=== PATIENT | female | born 1995 | race Two or more races ===

== ENCOUNTER 2019-04-23 07:46 | Emergency (ER) ==
[~2019-04-23] VITALS: Ht 152.4 cm; Wt 62.1 kg
[2019-04-23 07:58] VITALS: BP 121/88
[2019-04-23] MEDS ORDERED: IBUPROFEN 600 MG TABLET PO ONE ×2 (08:18→08:30)
[2019-04-23] MEDS ORDERED: HYDROCODONE/APAP 5/325MG 1 EACH TABLET ONE (08:18)
[2019-04-23] MEDS ORDERED: HYDROCODONE/APAP 5/325MG 1 EACH TABLET PO ONE (08:30)
== END 2019-04-23 10:36 | disposition home or self-care (01) ==
LOC: ER 07:46
DX: S09.8XXA Other specified injuries of head, initial encounter (principal); M54.5 Low back pain; V49.59XA Passenger injured in collision with other motor vehicles in traffic accident, initial encounter; Y93.89 Activity, other specified; Y92.413 State road as the place of occurrence of the external cause; Y99.8 Other external cause status
CPT/HCPCS: 72050; 72110; 99283; A6402

== ENCOUNTER 2019-06-05 19:04 | Emergency (ER) | payer BC ==
[~2019-06-05] VITALS: Ht 152.4 cm; Wt 61.2 kg
[2019-06-05 19:24] VITALS: BP 137/106
--- NOTE | 2019-06-05 19:24 | NUR ---
PT BIB SELF C/O SKIN RASH SINCE 5AM, TOOK BENADRYL AT 8 PM, NO RELIEF. -ITCH, -PAIN. PT AAOX4, NOT IN RESPIRATORY DISTRESS, KEPT RESTED AND COMFORTABLE, WILL CONTINUE TO MONITOR.
--- NOTE | 2019-06-05 19:36 | NUR ---
JOHNY WEINSTEIN AT BEDSIDE FOR EVAL.
[2019-06-05] MEDS ORDERED: FAMOTIDINE (20 MG) 20 MG TABLET ONE (19:53)
[2019-06-05] MEDS ORDERED: diphenhydrAMINE HCL 25 MG CAPSULE ONE (19:53)
[2019-06-05] MEDS ORDERED: predniSONE 20 MG TABLET ONE (19:53)
[2019-06-05] MEDS ORDERED: predniSONE 20 MG TABLET PO ONE (20:00)
[2019-06-05] MEDS ORDERED: FAMOTIDINE (20 MG) 20 MG TABLET PO ONE (20:00)
[2019-06-05] MEDS ORDERED: diphenhydrAMINE HCL 25 MG CAPSULE PO ONE (20:00)
--- NOTE | 2019-06-05 20:31 | NUR ---
Patient discharged to home in stable condition. Written and verbal after care instructions given. Patient verbalizes understanding of instruction.
== END 2019-06-05 20:34 | disposition home or self-care (01) ==
LOC: ER 19:10
DX: L23.9 Allergic contact dermatitis, unspecified cause (principal)
CPT/HCPCS: 99284; J7512; Q0163

== ENCOUNTER 2019-12-04 03:33 | Emergency (ER) | payer SELFPAY ==
[~2019-12-04] VITALS: Ht 152.4 cm; Wt 63.5 kg
[2019-12-04] MEDS ORDERED: DEXAMETHASONE SOD PHOSPHATE 10 MG/ML VIAL ONE (03:45)
--- NOTE | 2019-12-04 03:50 | NUR ---
bib friend for c/o allergic reaction. noted w/ scattered rashes on chest, BUE & breasts and Hives on the posterior neck, -SOB. placed on a monitor,
[2019-12-04] MEDS ORDERED: DEXAMETHASONE SOD PHOSPHATE 4 MG/ML VIAL IM ONE (04:00)
[2019-12-04] MEDS ORDERED: diphenhydrAMINE HCL 50 MG/ML VIAL ONE (04:10)
[2019-12-04] MEDS ORDERED: FAMOTIDINE/PF INJ 20 MG/2 ML VIAL IV ONE ×2 (04:10→04:30)
[2019-12-04] MEDS ORDERED: IV NS 0.9% 1,000 ML BAG IV ONE (04:30)
[2019-12-04] MEDS ORDERED: diphenhydrAMINE HCL 50 MG/ML VIAL IV ONE (04:30)
--- NOTE | 2019-12-04 06:29 | NUR ---
Patient is resting comfortably in bed with eyes closed. Easily aroused. VSS
--- NOTE | 2019-12-04 07:31 | NUR ---
Patient discharged to home in stable condition. Written and verbal after care instructions given. Patient verbalizes understanding of instruction.IV removed. Catheter intact and site benign. Pressure and 4x4 applied to site. No bleeding noted.
[2019-12-04 07:32] VITALS: BP 121/87
== END 2019-12-04 07:34 | disposition home or self-care (01) ==
LOC: ER 03:34
DX: L23.9 Allergic contact dermatitis, unspecified cause (principal)
CPT/HCPCS: 96372; 96374; 96375; 99283; J1100; J1200; J3490; J7030

== ENCOUNTER 2020-06-24 11:22 | Emergency (ER) | payer BC, OTHER ==
[~2020-06-24] VITALS: Ht 152.4 cm; Wt 59.0 kg
[2020-06-24 11:29] VITALS: BP 140/89
== END 2020-06-24 11:56 | disposition home or self-care (01) ==
LOC: ER 11:23
DX: Z11.59 Encounter for screening for other viral diseases (principal)
CPT/HCPCS: 99283; C9803; U0003